=== PATIENT | female | born 1980 | race Hispanic/Latino ===

== ENCOUNTER 2020-10-06 13:23 | Emergency (ER) | payer SELFPAY ==
[~2020-10-06] VITALS: Ht 170.2 cm; Wt 77.1 kg
[2020-10-06] MEDS ORDERED: GABAPENTIN800 MG PO (13:38)
[2020-10-06] MEDS ORDERED: AMOXICILLIN500 M1 PO (13:56)
[2020-10-06] MEDS ORDERED: NORCO 5-325 TA1 EACH PO (13:56)
== END 2020-10-06 14:17 | disposition home or self-care (01) ==
LOC: ED 13:23
DX: H66.92 Otitis media, unspecified, left ear (principal); F17.200 Nicotine dependence, unspecified, uncomplicated; Z79.899 Other long term (current) drug therapy
CPT/HCPCS: 99282